=== PATIENT | male | born 1960 | race Two or more races ===

== ENCOUNTER 2019-02-06 10:02 | Day surgery (SDC) | payer OTHER ==
[2019-02-06] VITALS (11 sets, daily range): BP systolic 122–144; BP diastolic 76–95
[~2019-02-06] VITALS: Ht 185.4 cm; Wt 93.0 kg
[~2019-02-06 10:02] MED LIST: NKM; ceFAZolin 1gm IVPB IVPB ONE; celeBREX 200mg Cap **SURGERY PATIENTS ONLY ORAL ONE; oxyCONTIN 20mg tab ORAL ONE
[2019-02-06] MEDS ORDERED: Midazolam 2mg/2ml Inj ONE (10:21)
[2019-02-06] MEDS ORDERED: fentaNYL 100 mcg/2 mL IV ONE (10:21)
[2019-02-06] MEDS ORDERED: Lidocaine 1% MPF 10mg/ml 5ml ONE ×2 (10:23→10:37)
[2019-02-06] MEDS ORDERED: celeBREX 200mg Cap **SURGERY PATIENTS ONLY ORAL ONE (10:33)
[2019-02-06] MEDS ORDERED: oxyCONTIN 20mg tab ORAL ONE (10:33)
[2019-02-06] MEDS ORDERED: Ropivacaine 5mg/ml Vial 30ml INJ ONE ×2 (10:36→11:21)
--- NOTE | 2019-02-06 11:13 | Pre-Procedure Note/Attestation ---
Pre-Procedure Note/Attestation Complete Prior to Procedure Planned Procedure: right Procedure Narrative: shoulder arthroscopy, sad Indications for Procedure Pre-Operative Diagnosis: right shoulder impingement Attestation I attest that I discussed the nature of the procedure; its benefits; risks and complications; and alternatives (and the risks and benefits of such alternatives ), prior to the procedure, with the patient (or the patient's legal industrial relations representative). I attest that, if there was a reasonable possibility of needing a blood transfusion, the patient (or the patient's legal industrial relations representative) was given the [facility] standardized written summary, pursuant to the [place] Blood Safety Act ([place] Health and Safety Code # 1645, as amended). I attest that I re-evaluated the patient just prior to the surgery and that there has been no change in the patient's H&P, except as documented below: Fredi Skinner MD Feb 06, 2019 11:13
--- NOTE | 2019-02-06 11:13 | Operative Note - PDOC ---
Operative Note Operative Note Pre-op Diagnosis: right shoulder impingement and right olecoronon bursitis Procedure: see op report Post-op Diagnosis: same as pre-op plus Operative Findings: consistent w/pre-op dx studies Anesthesia: regional Specimen: none Complications: none Condition: stable Estimated Blood Loss: none Implant(s) used?: No Fredi Skinner MD Feb 06, 2019 11:13
[2019-02-06] MEDS ORDERED: HYDROmorphone 1mg/ml Carpuject SUBQ PRN (11:15)
[2019-02-06] MEDS ORDERED: D5 1/2NS 1,000 ML IV SCH (11:15)
[2019-02-06] MEDS ORDERED: Tylenol #3 tab (300mg/30mg) ORAL PRN (11:15)
[2019-02-06] MEDS ORDERED: HYDROcodone/Acetamin 5/325 tab ORAL PRN (11:15)
[2019-02-06] MEDS ORDERED: Ketorolac 30mg Inj ONE ×2 (11:21→13:57)
[2019-02-06] MEDS ORDERED: Kenalog-40 1ml Vial ONE (11:21)
[2019-02-06] MEDS ORDERED: Bupivacaine w/Epi 0.25% 30ml Vial INJ ONE (11:21)
[2019-02-06] MEDS ORDERED: EPINEPHrine 1mg/1ml Amp ONE (11:21)
[2019-02-06] MEDS ORDERED: Duramorph PF 5mg/10ml amp ONE (11:23)
[2019-02-06] MEDS ORDERED: NS Irrig 4000ml IRRIG ONE ×3 (11:47→12:40)
[2019-02-06] MEDS ORDERED: Propofol 200mg/20ml IV ONE (11:56)
[2019-02-06] MEDS ORDERED: LR 1000ml ONE (12:00)
[2019-02-06] MEDS ORDERED: LR 1000ml 1,000 ML IVLG SCH (12:47)
--- NOTE | 2019-02-06 12:47 | Anethesia Preoperative Eval ---
Anesthesia Pre-op PMH/ROS General Date of Evaluation: Feb 06, 2019 Time of Evaluation: 11:21 Anesthesiologist: aJvier ASA Score: ASA 2 Mallampati Score Class I : Soft palate, uvula, fauces, pillars visible Class II: Soft palate, uvula, fauces visible Class III: Soft palate, base of uvula visible Class IV: Only hard plate visible Mallampati Classification: Class II Surgeon: Brody Diagnosis: R shoulder pain Surgical Procedure: R shoulder scope Anesthesia History: none Social History: current smoker Family History: no anesthesia problems Allergies: Coded Allergies: No Known Allergies (Unverified , 02/06/19) Medications: see eMAR Patient NPO?: Yes Past Medical History Cardiovascular: Denies: HTN, CAD, NV, valve dz, arrhythmia, other Pulmonary: 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 Exam Physician Exam Last Vital Signs Date Time Temp Pulse Resp B/P (MAP) Pulse Ox O2 Delivery O2 Flow Rate FiO2 02/06/19 10:32 Room Air 02/06/19 10:31 97.4 73 16 125/90 96 Constitutional: NAD Neurologic: CN 2-12 intact Cardiovascular: RRR, no M/R/G Respiratory: CTA Gastrointestinal: S/NT/ND Airway Exam Mallampati Score: Class II MO: full Neck: flexible ROM: full Teeth: missing Dentures: no upper, no lower Anesthesia Pre-op A/P Labs see chart Studies Pre-op Studies: EKG - NSR Risk Assessment & Plan Assessment: ASA 2 Plan: GA with LMA R brachial plexus block for postop pain control Status Change Before Surgery: No Pre-Antibiotics Drug: Ancef 2gr. Given Within 1 Hr of Incision: Yes Time Given: 12:20 Jairo Herrera MD Feb 06, 2019 12:47
[2019-02-06] MEDS ORDERED: DiphenhydrAMINE 50mg/ml Inj IVP PRN (13:00)
[2019-02-06] MEDS ORDERED: Ketorolac 30mg Inj IV PRN (13:00)
[2019-02-06] MEDS ORDERED: Meperidine 50mg/ml Inj(FOR RIGORS ONLY) IV PRN (13:00)
--- NOTE | 2019-02-06 13:50 | Immediate Post-Op Evaluation ---
Immediate Post-Op Evalulation Immediate Post-Op Evalulation Procedure: R shoulder arthroscopy subacromion decompression RC repair Date of Evaluation: Feb 06, 2019 Time of Evaluation: 13:49 IV Fluids: 1000 Blood Products: none Estimated Blood Loss: min Urinary Output: none Blood Pressure Systolic: 127 Blood Pressure Diastolic: 88 Pulse Rate: 68 Respiratory Rate: 20 O2 Sat by Pulse Oximetry: 98 Temperature (Fahrenheit): 97.6 Pain Score (1-10): 2 Nausea: No Vomiting: No Complications none Patient Status: reacts, patent, none Hydration Status: adequate Jairo Herrera MD Feb 06, 2019 13:50
--- NOTE | 2019-02-06 19:14 | 48 Hour Post Anesthesia Eval ---
Post Anesthesia Evaluation Procedure: R shoulder arthroscopy subacromion decompression RC repair Date of Evaluation: Feb 06, 2019 Time of Evaluation: 19:13 Blood Pressure Systolic: 144 0: 76 Pulse Rate: 68 Respiratory Rate: 20 Temperature (Fahrenheit): 97.6 O2 Sat by Pulse Oximetry: 98 Airway: patent Nausea: No Vomiting: No Pain Intensity: 2 Hydration Status: adequate Cardiopulmonary Status: stable Mental Status/LOC: patient returned to baseline Follow-up Care/Observations: n/a Post-Anesthesia Complications: none Follow-up care needed: ready to discharge Jairo Herrera MD Feb 06, 2019 19:14
--- NOTE | 2019-02-07 01:15 | Operative Note - Dictated ---
DATE OF OPERATION: 02/06/2019 PREOPERATIVE DIAGNOSES: 1. Right shoulder impingement syndrome. 2. Right shoulder traumatic olecranon bursitis. POSTOPERATIVE DIAGNOSES: 1. Right shoulder full-thickness rotator cuff tear. 2. Right shoulder impingement syndrome bursitis. 3. Right elbow traumatic olecranon bursitis. SURGEON: Fredi Skinner M.D. ANESTHESIA: Interscalene general. DESCRIPTION OF PROCEDURE: After informed consent was obtained, the patient was brought to the operating room and placed under interscalene general anesthesia. The patient was then carefully placed in beach-chair position. Right shoulder was prepped and draped in a sterile manner. Time-out was performed. The skin was incised. Trocar was introduced into the glenohumeral joint. There was significant fraying rotator interval. A portal was then established. At this point, the undersurface of the supraspinatus showed complete full-thickness detachment. Therefore, a shaver was then placed through this into the AC joint and soft tissue was debrided. Once this was done, the tissue lateral to the articular margin was debrided of any soft tissue. The camera was then repositioned in the subacromial space. Here, acromion was identified. Acromioplasty was started from lateral to medial and completed posterior to anterior. Once the acromioplasty and bursectomy was completed, the tear was better evaluated, it was crescent-shaped, slap type tear. [place] was then placed medially. Once that was secured, a lateral fixation was also applied. Once this was completed, the camera was repositioned into the joint and the footprint was completely recreated. At this point, the skin was closed using Monocryl sutures. At this point, attention was turned towards the right elbow. A standard lateral lateral medial olecranon was performed. Olecranon bursa was excised. Hemostasis was achieved using electrocautery. Once this was done, the skin was closed using 4-0 nylon sutures. Steri-Strips and a sterile dressing were applied. The patient was awoken and taken to the recovery room with stable vital signs. ESTIMATED BLOOD LOSS: None. COMPLICATIONS: None. SPECIMENS: Include right olecranon bursa. IMPLANTS: Include 2 Biomet rotator cuff anchors. Fredi Skinner M.D. DR: DEEPA JOB#: [id number] CC: [email or web address]
== END 2019-02-06 15:25 | disposition home or self-care (01) ==
LOC: SUR 10:02
DX: M75.41 Impingement syndrome of right shoulder (principal); M70.21 Olecranon bursitis, right elbow; M75.121 Complete rotator cuff tear or rupture of right shoulder, not specified as traumatic; J44.9 Chronic obstructive pulmonary disease, unspecified; K21.9 Gastro-esophageal reflux disease without esophagitis; F17.210 Nicotine dependence, cigarettes, uncomplicated
CPT/HCPCS: 29823; C1713; J0171; J0690; J1885; J2175; J2250; J2704; J2795; J3010; J3301; 94003; 94150